=== PATIENT | male | born 1985 ===

== ENCOUNTER 2017-06-23 11:54 | Emergency (ER) | payer SELFPAY ==
--- NOTE | 2017-06-23 13:00 | UC ---
Back Pain HPI - HPI Summary HPI Summary: 32 year old male with back pain . pain in back starting of this week. woke up this morning and the pain was worse. he thinks he pinched a nerve while twisting to stretch out while in a chair. he has been taking ibuprofen for the last few days. the pain is a sharp, stabbing pain. it is worse if he turns just right. no leg weakness. no foot drop. no problems going to bathroom. this happened when he was 18 years old and feels similar. had xrays done about 8 years ago and no acute concerns. is in construction and usually active. [ End ] - History of Current Complaint Chief Complaint: UCBackPain Stated Complaint: BACK PAIN Time Seen by Provider: 06/23/17 12:35 Hx Obtained From: Patient Onset/Duration: Sudden Onset Timing: Constant Severity Initially: Moderate Severity Currently: Moderate Pain Intensity: 4 Pain Scale Used: 0-10 Numeric Aggravating Factor(s): Movement Alleviating Factor(s): Rest Associated Signs And Symptoms: Positive: Negative - Risk Factors Cauda Equina Risk Factors: Negative - Allergies/Home Medications Allergies/Adverse Reactions: Allergies Allergy/AdvReac Type Severity Reaction Status Date / Time No Known Allergies Allergy Verified 06/23/17 12:31 Home Medications: Home Medications Ibuprofen TAB* [Motrin TAB* 600 MG] 600 mg PO Q6H PRN 06/23/17 [History Confirmed 06/23/17] PMH/Surg Hx/FS Hx/Imm Hx Previously Healthy: Yes - Surgical History Surgical History: None Surgery Procedure, Year, and Place: denies - Family History Known Family History: Positive: None - Social History Occupation: Employed Full-time Lives: With Family Alcohol Use: None Substance Use Type: None Smoking Status (MU): Never Smoked Tobacco Review of Systems Musculoskeletal: Arthralgia, Decreased ROM Is Patient Immunocompromised?: No All Other Systems Reviewed And Are Negative: Yes Physical Exam Triage Information Reviewed: Yes Appearance: Well-Appearing, Pain Distress - mild Vital Signs: Initial Vital Signs Temp 98.7 F 06/23/17 12:28 Pulse 98 06/23/17 12:28 Resp 14 06/23/17 12:28 BP 152/79 06/23/17 12:28 Pulse Ox 100 06/23/17 12:28 Vital Signs Reviewed: Yes Respiratory Exam: Normal Cardiovascular Exam: Normal Musculoskeletal: Positive: Strength Limited @, ROM Limited @, Other: - (+) SLR left. lumbar paraspinal tenderness L3-5. toe raise normal. can walk on heel. Neurological Exam: Normal Psychological Exam: Normal Skin Exam: Normal Back Pain Course/Dx - Course Course Of Treatment: no red flags. discussed those with patient. start medol, NSAIDs, flexeril and f/u with PCP for further work up . discussed PT and he will look up exercises on youtube. - Differential Dx/Diagnosis Differential Diagnosis/HQI/PQRI: Herniated Disc, Strain, Sprain Provider Diagnoses: 1-sciatica. 2- elevated BP due to pain Discharge - Sign-Out/Discharge Documenting (check all that apply): Discharge - Discharge Plan Condition: Good Disposition: HOME Prescriptions: Cyclobenzaprine HCl 10 mg PO BEDTIME PRN #10 tablet PRN Reason: Spasms methylPREDNISolone [Medrol Dosepak 4 MG*] 0 mg PO .SEE DEBRA INSTRUCTION #1 tab Patient Education Materials: Sciatica (ED), Lower Back Exercises (ED) Forms: *Work Release Referrals: Yadi Kuhn NP [Primary Care Provider] - 3 Days Duran Calderon MD [Medical Doctor] - (Ortho referral ) - Billing Disposition and Condition Condition: GOOD Disposition: HOME
== END 2017-06-23 12:52 | disposition home or self-care (01) ==
LOC: UCCORT 11:54
DX: M54.30 Sciatica, unspecified side (principal); R03.0 Elevated blood-pressure reading, without diagnosis of hypertension
CPT/HCPCS: 99202; G0463